=== PATIENT | female | born 2000 | race Caucasian/White ===

== ENCOUNTER 2020-12-23 17:09 | Inpatient (IN) | payer OTHER ==
[~2020-12-23] VITALS: Ht 160 cm; Wt 80.7 kg
[2020-12-23] MEDS ORDERED: PRENATAL VITAM1 EAC6 PO (18:23)
[2020-12-23 18:38] LABS: HEMOGLOBIN 12.8 gm/dl (12.3-15.3); RED BLOOD COUNT 4.47 M/UL (4.00-5.10); WHITE BLOOD COUNT 14.8 K/UL (4.5-11.0)
[2020-12-24] MEDS ORDERED: IBUPROFEN600 MG PO (17:19)
[2020-12-24] MEDS ORDERED: DOCUSATE SODIU250 MG PO (17:19)
[2020-12-24] MEDS ORDERED: FEROSUL325 MG PO (17:19)
[2020-12-25 04:32] LABS: HEMOGLOBIN 12.4 gm/dl (12.3-15.3)
== END 2020-12-25 18:37 | disposition home or self-care (01) | DRG 807 ==
LOC: GENOP 17:09 → OB 18:17
PROVIDERS: Obstetrics & Gynecology; ADMIT Obstetrics & Gynecology
PROC: 10E0XZZ Delivery of Products of Conception, External Approach (ICD-10-PCS; principal; 2020-12-23)
PROC: 4A1HXCZ Monitoring of Products of Conception, Cardiac Rate, External Approach (ICD-10-PCS; 2020-12-23)
PROC: 10907ZC Drainage of Amniotic Fluid, Therapeutic from Products of Conception, Via Natural or Artificial Opening (ICD-10-PCS; 2020-12-23)
DX: O41.03X0 Oligohydramnios, third trimester, not applicable or unspecified (principal); Z37.0 Single live birth; Z3A.39 39 weeks gestation of pregnancy; O99.344 Other mental disorders complicating childbirth; F32.9 Major depressive disorder, single episode, unspecified; Z20.822 Contact with and (suspected) exposure to COVID-19; F41.9 Anxiety disorder, unspecified; O99.52 Diseases of the respiratory system complicating childbirth; J45.909 Unspecified asthma, uncomplicated; Z98.890 Other specified postprocedural states; Z98.818 Other dental procedure status; Z88.0 Allergy status to penicillin; Z88.1 Allergy status to other antibiotic agents; Z80.8 Family history of malignant neoplasm of other organs or systems
CPT/HCPCS: 36415; 51702; 81001; 82800; 85014; 85018; 85025; 90471; 90715; J0595; J2405; J2590; J2795; J7120; U0002